=== PATIENT | female | born 1990 | race Caucasian/White ===

== ENCOUNTER 2019-03-24 05:44 | Inpatient (IN) | payer BC, MEDICAID, SELFPAY ==
[2019-03-24] MEDS: Lactated Ringers 1,000 ML 125 ML IV (06:30)
[2019-03-24] MEDS: Penicillin G POT. 5,000,000 UNITS in Normal Saline 100 ML 200 UNITS IVPB (06:31)
[2019-03-24] MEDS: Normal Saline 100 ML 50 ML (06:31)
[2019-03-24] MEDS: Ibuprofen 600 MG TAB PO ×2 (11:45→22:47)
[2019-03-24] MEDS: Acetaminophen 325 MG TAB 650 MG PO ×2 (11:45→22:47)
[2019-03-25] MEDS: Ibuprofen 600 MG TAB PO ×2 (11:43→20:53)
[2019-03-25] MEDS: Acetaminophen 325 MG TAB 650 MG PO ×2 (11:44→20:52)
[2019-03-26] MEDS: Ibuprofen 600 MG TAB PO (07:56)
[2019-03-26] MEDS: Acetaminophen 325 MG TAB 650 MG PO (07:56)
== END 2019-03-26 10:45 | disposition home or self-care (01) | DRG 807 ==
PROVIDERS: Admitting Provider Family Medicine; Visit Provider Family Medicine
DX: O99.824 Streptococcus B carrier state complicating childbirth (principal); Z37.0 Single live birth; O62.3 Precipitate labor; Z3A.40 40 weeks gestation of pregnancy; O69.81X0 Labor and delivery complicated by cord around neck, without compression, not applicable or unspecified; O69.89X0 Labor and delivery complicated by other cord complications, not applicable or unspecified
CPT/HCPCS: 86900; 86901; J2540; J3490